=== PATIENT | female | born 1945 | race African-American/Black ===

== ENCOUNTER 2019-02-22 04:01 | Observation (INO) ==
[2019-02-22 04:27] LABS: Basophils % 0.1 % (0.0-0.8); Hematocrit 36.2 VOL% (35.7-47.0); Hemoglobin 11.2 GM/DL (12.0-16.0); Immature Granulocytes % 0.2 %; Immature Granulocytes Absolute 0.02 #; Lymphocytes % 21.2 % (21.3-54.2); Mean Corpuscular HGB Conc 30.9 GM/DL (32-36); Mean Corpuscular Volume 91.2 FL (87-102); Mean Platelet Volume 9.4 FL (9.6-12.0); Monocytes % 3.5 % (1.7-12.7); Platelet Count 257 T/CUMM (130-400); Red Blood Count 3.97 MC/CUMM (3.8-5.5); Red Cell Distribution Width 13.4 % (9.3-17.3); White Blood Count 9.2 T/CUMM (4-12)
[2019-02-22 04:33] LABS: INR 0.9; PT Patient Result 9.9 SECS (9.6-12.2)
[2019-02-22 04:38] LABS: Apearance,Urine CLEAR (Clear); Bilirubin,Urine Negative (Negative); Blood, Urine Negative (Negative); Glucose,Urine (UA) 150 mg/dL (Negative); Ketones,Urine Negative (Negative); Nitrite,Urine Negative (Negative); Protein,Urine Negative; RBC,Urine 1 /HPF (0-4); Urine Color Yellow (Yellow); Urine Specific Gravity 1.021 (1.001-1.035); Urine Urobilinogen < 2.0 EU/DL (0.2-1.0); WBC,Urine <1 /HPF (0-6)
[2019-02-22 04:45] LABS: Albumin 3.2 G/DL (3.4-5.0); Bilirubin,Total 0.4 MG/DL (0.2-1.0); Calcium 8.5 MG/DL (8.5-10.1); Osmolality,Calculated 290.3 MOS/KG (273-304); Total Protein 6.8 G/DL (6.4-8.3)
[2019-02-22] MEDS ORDERED: MAGNESIUM SULF RIDER 1 GM in PREMIX 1 EACH IV STA (05:05)
[2019-02-22] MEDS ORDERED: SODIUM CHLORIDE 0.9% 1,000 ML IV STA (05:10)
[2019-02-22] MEDS ORDERED: MAGNESIUM SULF RIDER 2 GM in PREMIX 1 EACH IV STA (05:12)
[2019-02-22 05:13] LABS: Barbiturates Screen,Urine Negative (Negative); Benzodiazepines Screen,Urine Negative (Negative); Cannabinoid Screen,Urine Negative (Negative); Opiate Screen,Urine Negative (Negative); Phencyclidine Screen,Urine Negative (Negative)
[2019-02-22] MEDS ORDERED: MAGNESIUM SULF RIDER 50 ML IV ONE (05:13)
[2019-02-22] MEDS ORDERED: MAGNESIUM SULF RIDER 2 GM in PREMIX 1 EACH IV PRN (06:35)
[2019-02-22] MEDS ORDERED: MAGNESIUM SULF RIDER 4 GM in PREMIX 1 EACH IV PRN (06:35)
[2019-02-22] MEDS ORDERED: DEXTROSE 50% 25 GM/50 ML VIAL IV PRN (06:35)
[2019-02-22] MEDS ORDERED: GLUCAGON 1 MG VIAL IM PRN (06:35)
[2019-02-22] MEDS ORDERED: DOCUSATE SODIUM 100 MG CAPSULE PO PRN (06:35)
[2019-02-22] MEDS ORDERED: ONDANSETRON 4 MG/2 ML VIAL IV PRN (06:35)
[2019-02-22] MEDS ORDERED: ACETAMINOPHEN 325 MG TABLET PO PRN (06:35)
[2019-02-22] MEDS: SODIUM CHLORIDE 0.9% 1,000 ML IV SCH ×2 (06:44→18:36)
[2019-02-22] MEDS: ENOXAPARIN 40 MG/0.4 ML SYRINGE SUBCUT SCH (06:44)
[2019-02-22 07:49] LABS: % Iron Saturation 14.7 % (18-50); Ferritin 81.8 ng/ml (8-252); Risk Ratio 2.21; Thyroid Stimulating Hormone 3.33 uIU/ml (0.358-3.74); VLDL CHOLESTEROL 17.4 MG/DL
[2019-02-22 08:18] LABS: Hematocrit 34.6 VOL% (35.7-47.0); Hemoglobin 10.9 GM/DL (12.0-16.0); Immature Granulocytes % 0.6 %; Immature Granulocytes Absolute 0.06 #; Lymphocytes # 0.9 10*3/uL (1.4-4.0); Mean Corpuscular HGB Conc 31.5 GM/DL (32-36); Mean Corpuscular Volume 90.3 FL (87-102); Mean Platelet Volume 9.4 FL (9.6-12.0); Monocytes % 3.2 % (1.7-12.7); Neutrophils % 87.2 % (38.7-73.9); Platelet Count 267 T/CUMM (130-400); Red Blood Count 3.83 MC/CUMM (3.8-5.5); Red Cell Distribution Width 13.5 % (9.3-17.3); White Blood Count 10.2 T/CUMM (4-12)
[2019-02-22 08:47] LABS: Folate 10.4 NG/ML (5.4-24.0); Vitamin B12 474 PG/ML (211-911)
[2019-02-22 09:22] LABS: Sedimentation Rate-Westergren 59 MM/HR (0-30)
[2019-02-22] MEDS: INSULIN REGULAR 100 UNIT/ML SUBCUT SCH ×4 (09:35→22:36)
[2019-02-22] MEDS ORDERED: POTASSIUM CHLORIDE RIDER 10 MEQ in PREMIX 1 EACH IV PRN (10:19)
[2019-02-22] MEDS ORDERED: diphenhydrAMINE CAP 25 MG CAPSULE PO PRN (11:00)
[2019-02-22] MEDS ORDERED: LISINOPRIL 5 MG TABLET PO ONE (11:06)
[2019-02-22 12:13] LABS: Calcium 8.4 MG/DL (8.5-10.1); Osmolality,Calculated 290.3 MOS/KG (273-304)
[2019-02-22] MEDS ORDERED: IBUPROFEN 800 MG TABLET PO PRN (21:52)
[2019-02-22] MEDS ORDERED: traZODone 50 MG TABLET PO SCH (23:00)
[2019-02-23] MEDS: SODIUM CHLORIDE 0.9% 1,000 ML IV SCH (01:35)
[2019-02-23 05:02] LABS: Eosinophils % 0.1 % (0.00-10.9); Hematocrit 29.7 VOL% (35.7-47.0); Hemoglobin 9.3 GM/DL (12.0-16.0); Immature Granulocytes % 0.3 %; Immature Granulocytes Absolute 0.02 #; Lymphocytes # 1.6 10*3/uL (1.4-4.0); Lymphocytes % 22.7 % (21.3-54.2); Mean Corpuscular HGB Conc 31.3 GM/DL (32-36); Mean Corpuscular Volume 91.1 FL (87-102); Mean Platelet Volume 9.8 FL (9.6-12.0); Monocytes % 4.1 % (1.7-12.7); Neutrophils % 72.8 % (38.7-73.9); Platelet Count 231 T/CUMM (130-400); Red Blood Count 3.26 MC/CUMM (3.8-5.5); Red Cell Distribution Width 13.3 % (9.3-17.3)
[2019-02-23 05:49] LABS: Osmolality,Calculated 288.8 MOS/KG (273-304)
[2019-02-23] MEDS: ENOXAPARIN 40 MG/0.4 ML SYRINGE SUBCUT SCH (07:25)
[2019-02-23] MEDS: INSULIN REGULAR 100 UNIT/ML SUBCUT SCH ×2 (08:47→11:53)
[2019-02-23] MEDS ORDERED: SERTRALINE 100 MG TABLET PO SCH (09:00)
[2019-02-23] MEDS ORDERED: CLOPIDOGREL 75 MG TABLET PO SCH (09:00)
[2019-02-23] MEDS ORDERED: LISINOPRIL 2.5 MG TABLET PO SCH (09:00)
[2019-02-23] MEDS ORDERED: sitaGLIPtin 100 MG TABLET PO SCH (09:00)
[2019-02-23 09:26] LABS: Hemoglobin A1 (Alkaline) 97.5 % (96.5-98.5); Hemoglobin A2 (Alkaline) 2.5 % (1.5-3.5)
[2019-02-23 10:52] VITALS: BP 127/81
== END 2019-02-23 14:48 | disposition home health service (06) ==
LOC: EDUNIT# → EDBD → N.EDINP 04:01 → N.ED 04:01 → N.4E 06:08
PROVIDERS: ADMIT Internal Medicine; ATTEND Internal Medicine

== ENCOUNTER 2022-05-24 19:26 | Inpatient (IN) ==
[2022-05-24 20:12] LABS: Basophils % 0.1 % (0.0-0.8); Hemoglobin 11.3 GM/DL (12.0-16.0); Immature Granulocytes % 0.7 %; Immature Granulocytes Absolute 0.08 #; Lymphocytes # 0.2 10*3/uL (1.4-4.0); Lymphocytes % 2.1 % (21.3-54.2); Mean Corpuscular HGB Conc 31.4 GM/DL (32-36); Mean Corpuscular Volume 86.7 FL (87-102); Mean Platelet Volume 10.3 FL (9.6-12.0); Monocytes # 0.5 10*3/uL (0.11-0.8); Monocytes % 4.5 % (1.7-12.7); Neutrophils % 92.6 % (38.7-73.9); Platelet Count 209 T/CUMM (130-400); Red Blood Count 4.15 MC/CUMM (3.8-5.5); Red Cell Distribution Width 14.4 % (9.3-17.3); White Blood Count 11.25 T/CUMM (4-12)
[2022-05-24 20:22] LABS: PT Patient Result 10.7 SECS (10.1-12.1); Partial Thromboplastin Time 29.6 SECS (23.7-32.9)
[2022-05-24 20:39] LABS: Albumin 3.8 G/DL (3.4-5.0); Bilirubin,Total 0.6 MG/DL (0.20-1.00); Calcium 9.5 MG/DL (8.5-10.1); Osmolality,Calculated 281.7 MOS/KG (273-304); Potassium 4.5 MMOL/L (3.5-5.1); Total Protein 7.4 G/DL (6.4-8.2)
[2022-05-24] MEDS ORDERED: MORPHINE 2 MG/1 ML SYRINGE IV STA (20:54)
[2022-05-24] MEDS ORDERED: NITROGLYCERIN SL 0.4 MG TABLET SL STA (20:54)
[2022-05-24] MEDS ORDERED: ASPIRIN 325 MG TABLET PO STA (20:54)
[2022-05-24] MEDS ORDERED: ONDANSETRON 4 MG/2 ML VIAL IV ONE (20:54)
[2022-05-24 21:00] LABS: Hypochromia Slight; Lymphocytes 1 % (20-55); Total Cells Counted 100
[2022-05-24 21:01] LABS: Ovalocytes Slight; Platelet Estimate Normal
[2022-05-24 21:39] LABS: Amorphous Crystals,Urine Occasional /HPF (Few); Mucus,Urine Occasional /LPF (Occasional); RBC,Urine 6 /HPF (0-4)
[2022-05-24 21:40] LABS: Glucose,Urine (UA) Negative (Negative); Ketones,Urine 80 mg/dL (Negative); Nitrite,Urine Negative (Negative); Protein,Urine >=300 mg/dL (Negative); Urine Appearance Slightly Cloudy (Clear); Urine Color Yellow (Yellow); Urine Specific Gravity >= 1.030 (1.001-1.035); Urine pH 5.5 (4.5-8.0)
[2022-05-24 21:41] LABS: Bilirubin,Urine Moderate mg/dL (Negative); Blood, Urine Large mg/dL (Negative); Urine Urobilinogen 0.2 eU/dL (<2.0)
[2022-05-24] MEDS ORDERED: ENOXAPARIN 30 MG/0.3 ML SYRINGE SUBCUT STA (21:45)
[2022-05-24] MEDS ORDERED: ENOXAPARIN 80 MG/0.8 ML SYRINGE SUBCUT STA (21:49)
[2022-05-24] MEDS ORDERED: hydrALAZINE 20 MG/1 ML VIAL IV PRN (23:30)
[2022-05-24] MEDS ORDERED: ONDANSETRON 4 MG/2 ML VIAL IV PRN (23:30)
[2022-05-24] MEDS ORDERED: SODIUM CHLORIDE 0.9% 1,000 ML IV STA (23:31)
[2022-05-24] MEDS ORDERED: MAGNESIUM SULF RIDER 2 GM/50 ML PREMIX IV ONE (23:34)
[2022-05-24] MEDS ORDERED: DEXTROSE 10% 250 ML BAG IV PRN (23:46)
[2022-05-25] MEDS ORDERED: REMDESIVIR 200 MG in SODIUM CHLORIDE 0.9% 210 ML IV ONE (01:00)
[2022-05-25] MEDS: DEXAMETHASONE 4 MG/1 ML VIAL IV SCH ×2 (02:11→11:30)
[2022-05-25] MEDS: SODIUM CHLORIDE 0.9% 1,000 ML IV SCH ×4 (02:42→22:29)
[2022-05-25 04:34] LABS: Basophils % 0.3 % (0.0-0.8); Hematocrit 32.3 VOL% (35.7-47.0); Hemoglobin 10.1 GM/DL (12.0-16.0); Immature Granulocytes % 0.6 %; Immature Granulocytes Absolute 0.05 #; Lymphocytes # 0.3 10*3/uL (1.4-4.0); Lymphocytes % 4.2 % (21.3-54.2); Mean Corpuscular HGB Conc 31.3 GM/DL (32-36); Mean Corpuscular Volume 89.5 FL (87-102); Monocytes # 0.3 10*3/uL (0.11-0.8); Monocytes % 4.3 % (1.7-12.7); Neutrophils % 90.6 % (38.7-73.9); Platelet Count 177 T/CUMM (130-400); Red Blood Count 3.61 MC/CUMM (3.8-5.5); Red Cell Distribution Width 14.5 % (9.3-17.3); White Blood Count 7.95 T/CUMM (4-12)
[2022-05-25 04:54] LABS: Band Neutrophils 1 % (0-10); Lymphocytes 3 % (20-55); Total Cells Counted 100
[2022-05-25 04:55] LABS: Hypersegmented Neutrophil SLIGHT; Hypochromia Slight; Microcytosis Slight
[2022-05-25 04:56] LABS: Alanine Aminotransferase 31 U/L (13-56); Albumin 3.1 G/DL (3.4-5.0); Alkaline Phosphatase 63 U/L (45-117); Aspartate Amino Transferase 106 U/L (0-37); Bilirubin,Total < 0.39 MG/DL (0.20-1.00); Blood Urea Nitrogen 23 MG/DL (7-18); Calcium 8.8 MG/DL (8.5-10.1); Carbon Dioxide 20 MMOL/L (21-32); Chloride 109 MMOL/L (98-107); Glucose 113 MG/DL (74-106); Osmolality,Calculated 283.4 MOS/KG (273-304); Ovalocytes Slight; Potassium 4.2 MMOL/L (3.5-5.1); Sodium 140 MMOL/L (136-145); Total Protein 6.6 G/DL (6.4-8.2)
[2022-05-25] MEDS ORDERED: AZITHROMYCIN INJ 500 MG in SODIUM CHLORIDE 0.9% 250 ML IV ONE (11:16)
[2022-05-25] MEDS: INSULIN LISPRO 100 UNIT/ML SUBCUT SCH ×4 (11:27→22:27)
[2022-05-25] MEDS: FAMOTIDINE 20 MG TABLET PO SCH ×2 (11:33→22:29)
[2022-05-25] MEDS: PANTOPRAZOLE 40 MG TABLET PO SCH (11:34)
[2022-05-25] MEDS: CETIRIZINE 10 MG TABLET PO SCH (11:34)
[2022-05-25] MEDS: ZINC GLUCONATE 50 MG TABLET PO SCH (11:34)
[2022-05-25] MEDS: ASCORBIC ACID 500 MG TABLET PO SCH ×2 (11:34→22:29)
[2022-05-25] MEDS: CHOLECALCIFEROL 1,000 UNIT TABLET PO SCH (11:34)
[2022-05-25] MEDS ORDERED: REMDESIVIR 100 MG in SODIUM CHLORIDE 0.9% 100 ML IV SCH (21:00)
[2022-05-25] MEDS: REMDESIVIR 100 MG in SODIUM CHLORIDE 0.9% 100 ML IV SCH (22:29)
[2022-05-25] MEDS: MELATONIN 3 MG TABLET PO PRN (22:29)
[2022-05-25] MEDS ORDERED: ACETAMINOPHEN 325 MG TABLET PO PRN (22:31)
[2022-05-26] MEDS: INSULIN LISPRO 100 UNIT/ML SUBCUT SCH ×4 (01:13→20:21)
[2022-05-26] MEDS: SODIUM CHLORIDE 0.9% 1,000 ML IV SCH ×2 (02:53→11:01)
[2022-05-26 04:48] LABS: Hematocrit 30.5 VOL% (35.7-47.0); Hemoglobin 9.5 GM/DL (12.0-16.0); Immature Granulocytes % 0.7 %; Immature Granulocytes Absolute 0.05 #; Lymphocytes # 0.7 10*3/uL (1.4-4.0); Lymphocytes % 9.2 % (21.3-54.2); Mean Corpuscular HGB Conc 31.1 GM/DL (32-36); Mean Corpuscular Volume 87.6 FL (87-102); Mean Platelet Volume 9.9 FL (9.6-12.0); Monocytes # 0.4 10*3/uL (0.11-0.8); Monocytes % 5.8 % (1.7-12.7); Neutrophils % 84.3 % (38.7-73.9); Platelet Count 181 T/CUMM (130-400); Red Blood Count 3.48 MC/CUMM (3.8-5.5); Red Cell Distribution Width 14.8 % (9.3-17.3); White Blood Count 7.21 T/CUMM (4-12)
[2022-05-26 05:07] LABS: Osmolality,Calculated 287.3 MOS/KG (273-304); Potassium 4.4 MMOL/L (3.5-5.1)
[2022-05-26 05:19] LABS: Ferritin 138.5 ng/mL (8-252)
[2022-05-26] MEDS: REMDESIVIR 100 MG in SODIUM CHLORIDE 0.9% 100 ML IV SCH (11:01)
[2022-05-26] MEDS: SERTRALINE 100 MG TABLET PO SCH (11:06)
[2022-05-26] MEDS: FAMOTIDINE 20 MG TABLET PO SCH ×2 (11:06→20:22)
[2022-05-26] MEDS: CETIRIZINE 10 MG TABLET PO SCH (11:06)
[2022-05-26] MEDS: CLOPIDOGREL 75 MG TABLET PO SCH (11:06)
[2022-05-26] MEDS: PANTOPRAZOLE 40 MG TABLET PO SCH (11:06)
[2022-05-26] MEDS: ASCORBIC ACID 500 MG TABLET PO SCH ×2 (11:07→20:22)
[2022-05-26] MEDS: CHOLECALCIFEROL 1,000 UNIT TABLET PO SCH (11:07)
[2022-05-26] MEDS: AZITHROMYCIN 250 MG TABLET PO SCH (11:07)
[2022-05-26] MEDS: ZINC GLUCONATE 50 MG TABLET PO SCH (11:07)
[2022-05-26] MEDS: DEXAMETHASONE 4 MG/1 ML VIAL IV SCH (12:41)
[2022-05-26] MEDS: MELATONIN 3 MG TABLET PO PRN (20:22)
[2022-05-27 04:31] LABS: Basophils % 0.1 % (0.0-0.8); Hematocrit 30.8 VOL% (35.7-47.0); Hemoglobin 9.7 GM/DL (12.0-16.0); Immature Granulocytes % 0.3 %; Immature Granulocytes Absolute 0.02 #; Lymphocytes # 1.1 10*3/uL (1.4-4.0); Lymphocytes % 14.5 % (21.3-54.2); Mean Corpuscular HGB Conc 31.5 GM/DL (32-36); Mean Corpuscular Volume 87.7 FL (87-102); Mean Platelet Volume 10.2 FL (9.6-12.0); Monocytes # 0.3 10*3/uL (0.11-0.8); Monocytes % 4.2 % (1.7-12.7); Neutrophils % 80.9 % (38.7-73.9); Platelet Count 187 T/CUMM (130-400); Red Blood Count 3.51 MC/CUMM (3.8-5.5); White Blood Count 7.57 T/CUMM (4-12)
[2022-05-27 04:58] LABS: Calcium 8.2 MG/DL (8.5-10.1); Osmolality,Calculated 283.3 MOS/KG (273-304); Potassium 4.1 MMOL/L (3.5-5.1)
[2022-05-27] MEDS: SODIUM CHLORIDE 0.9% 1,000 ML IV SCH (05:59)
[2022-05-27] MEDS ORDERED: MAGNESIUM SULF RIDER 2 GM/50 ML PREMIX IV ONE (08:18)
[2022-05-27] MEDS: CLOPIDOGREL 75 MG TABLET PO SCH (08:45)
[2022-05-27] MEDS: CHOLECALCIFEROL 1,000 UNIT TABLET PO SCH (08:45)
[2022-05-27] MEDS: FAMOTIDINE 20 MG TABLET PO SCH ×2 (08:45→20:30)
[2022-05-27] MEDS: ASCORBIC ACID 500 MG TABLET PO SCH ×2 (08:45→20:30)
[2022-05-27] MEDS: SERTRALINE 100 MG TABLET PO SCH (08:45)
[2022-05-27] MEDS: AZITHROMYCIN 250 MG TABLET PO SCH (08:45)
[2022-05-27] MEDS: PANTOPRAZOLE 40 MG TABLET PO SCH (08:45)
[2022-05-27] MEDS: CETIRIZINE 10 MG TABLET PO SCH (08:45)
[2022-05-27] MEDS: DEXAMETHASONE 4 MG/1 ML VIAL IV SCH (08:46)
[2022-05-27] MEDS: INSULIN LISPRO 100 UNIT/ML SUBCUT SCH ×4 (09:08→20:29)
[2022-05-27] MEDS: ZINC GLUCONATE 50 MG TABLET PO SCH (09:28)
[2022-05-27] MEDS: REMDESIVIR 100 MG in SODIUM CHLORIDE 0.9% 100 ML IV SCH (10:57)
[2022-05-27 17:20] LABS: % Iron Saturation 21.6 % (18-50)
[2022-05-27 17:27] LABS: 25 Hydroxy Vitamin D Total 9.4 NG/ML (30-100); Folate 5.8 NG/ML (5.38-24.0)
[2022-05-27] MEDS: MELATONIN 3 MG TABLET PO PRN (20:45)
[2022-05-28] MEDS: SODIUM CHLORIDE 0.9% 1,000 ML IV SCH ×2 (01:57→22:19)
[2022-05-28 05:10] LABS: Hematocrit 31.2 VOL% (35.7-47.0); Hemoglobin 9.9 GM/DL (12.0-16.0); Immature Granulocytes % 0.7 %; Immature Granulocytes Absolute 0.05 #; Lymphocytes # 1.9 10*3/uL (1.4-4.0); Lymphocytes % 24.6 % (21.3-54.2); Mean Corpuscular HGB Conc 31.7 GM/DL (32-36); Mean Corpuscular Volume 85.5 FL (87-102); Mean Platelet Volume 10.1 FL (9.6-12.0); Monocytes # 0.6 10*3/uL (0.11-0.8); Monocytes % 7.2 % (1.7-12.7); Neutrophils % 67.5 % (38.7-73.9); Platelet Count 217 T/CUMM (130-400); Red Blood Count 3.65 MC/CUMM (3.8-5.5); Red Cell Distribution Width 14.7 % (9.3-17.3); White Blood Count 7.65 T/CUMM (4-12)
[2022-05-28 05:11] LABS: Basophils % 0.1 % (0.0-0.8); Hematocrit 30.9 VOL% (35.7-47.0); Immature Granulocytes % 0.4 %; Immature Granulocytes Absolute 0.03 #; Lymphocytes # 1.8 10*3/uL (1.4-4.0); Mean Corpuscular HGB Conc 32.4 GM/DL (32-36); Mean Corpuscular Volume 86.1 FL (87-102); Mean Platelet Volume 9.8 FL (9.6-12.0); Monocytes # 0.5 10*3/uL (0.11-0.8); Monocytes % 6.6 % (1.7-12.7); Neutrophils % 68.9 % (38.7-73.9); Platelet Count 207 T/CUMM (130-400); Red Blood Count 3.59 MC/CUMM (3.8-5.5); Red Cell Distribution Width 14.8 % (9.3-17.3); White Blood Count 7.58 T/CUMM (4-12)
[2022-05-28 05:29] LABS: Calcium 8.3 MG/DL (8.5-10.1); Osmolality,Calculated 287.1 MOS/KG (273-304); Potassium 3.5 MMOL/L (3.5-5.1)
[2022-05-28 05:35] LABS: Folate 5.16 NG/ML (5.38-24.0); Vitamin B12 511 PG/ML (211-911)
[2022-05-28 06:18] LABS: Sedimentation Rate-Westergren 57 MM/HR (0-30)
[2022-05-28] MEDS ORDERED: lisinopriL 2.5 MG TABLET PO SCH (09:00)
[2022-05-28 09:28] LABS: Hemoglobin A1 (Alkaline) 97.8 % (96.5-98.5); Hemoglobin A2 (Alkaline) 2.2 % (1.5-3.5)
[2022-05-28] MEDS: CLOPIDOGREL 75 MG TABLET PO SCH (10:25)
[2022-05-28] MEDS: FERROUS SULFATE 325 MG TABLET PO SCH ×2 (10:25→22:18)
[2022-05-28] MEDS: FOLIC ACID 1 MG TABLET PO SCH (10:25)
[2022-05-28] MEDS: FAMOTIDINE 20 MG TABLET PO SCH ×2 (10:25→22:18)
[2022-05-28] MEDS: PANTOPRAZOLE 40 MG TABLET PO SCH (10:26)
[2022-05-28] MEDS: SERTRALINE 100 MG TABLET PO SCH (10:26)
[2022-05-28] MEDS: ASCORBIC ACID 500 MG TABLET PO SCH ×2 (10:26→22:18)
[2022-05-28] MEDS: ARIPiprazole 5 MG TABLET PO SCH (10:26)
[2022-05-28] MEDS: ZINC GLUCONATE 50 MG TABLET PO SCH (10:27)
[2022-05-28] MEDS: AZITHROMYCIN 250 MG TABLET PO SCH (10:27)
[2022-05-28] MEDS: CETIRIZINE 10 MG TABLET PO SCH (10:27)
[2022-05-28] MEDS: CHOLECALCIFEROL 1,000 UNIT TABLET PO SCH (10:27)
[2022-05-28] MEDS: DEXAMETHASONE 4 MG/1 ML VIAL IV SCH (10:28)
[2022-05-28] MEDS: REMDESIVIR 100 MG in SODIUM CHLORIDE 0.9% 100 ML IV SCH (10:28)
[2022-05-28] MEDS: INSULIN LISPRO 100 UNIT/ML SUBCUT SCH ×4 (10:30→22:19)
[2022-05-28] MEDS: MELATONIN 3 MG TABLET PO PRN (22:18)
[2022-05-29 04:35] LABS: Hematocrit 31.6 VOL% (35.7-47.0); Hemoglobin 10.1 GM/DL (12.0-16.0); Immature Granulocytes % 0.9 %; Immature Granulocytes Absolute 0.07 #; Lymphocytes # 1.8 10*3/uL (1.4-4.0); Lymphocytes % 23.5 % (21.3-54.2); Mean Corpuscular Volume 85.4 FL (87-102); Mean Platelet Volume 10.2 FL (9.6-12.0); Monocytes # 0.6 10*3/uL (0.11-0.8); Monocytes % 7.8 % (1.7-12.7); Neutrophils % 67.8 % (38.7-73.9); Platelet Count 231 T/CUMM (130-400); Red Cell Distribution Width 14.5 % (9.3-17.3); White Blood Count 7.83 T/CUMM (4-12)
[2022-05-29 05:08] LABS: Alanine Aminotransferase 28 U/L (13-56); Albumin 2.6 G/DL (3.4-5.0); Alkaline Phosphatase 58 U/L (45-117); Aspartate Amino Transferase 21 U/L (0-37); Bilirubin,Total < 0.39 MG/DL (0.20-1.00); Blood Urea Nitrogen 20 MG/DL (7-18); Calcium 8.4 MG/DL (8.5-10.1); Carbon Dioxide 24 MMOL/L (21-32); Chloride 110 MMOL/L (98-107); Glucose 139 MG/DL (74-106); Osmolality,Calculated 281.5 MOS/KG (273-304); Potassium 3.3 MMOL/L (3.5-5.1); Sodium 139 MMOL/L (136-145); Total Protein 6.4 G/DL (6.4-8.2)
[2022-05-29] MEDS ORDERED: POTASSIUM CHLORIDE 20 MEQ TABLET PO ONE (08:20)
[2022-05-29] MEDS ORDERED: lisinopriL 5 MG TABLET PO SCH (09:00)
[2022-05-29] MEDS: INSULIN LISPRO 100 UNIT/ML SUBCUT SCH ×4 (09:16→21:27)
[2022-05-29] MEDS: DEXAMETHASONE 4 MG/1 ML VIAL IV SCH (10:19)
[2022-05-29] MEDS: FAMOTIDINE 20 MG TABLET PO SCH ×2 (10:20→21:20)
[2022-05-29] MEDS: CLOPIDOGREL 75 MG TABLET PO SCH (10:20)
[2022-05-29] MEDS: PANTOPRAZOLE 40 MG TABLET PO SCH (10:20)
[2022-05-29] MEDS: CHOLECALCIFEROL 1,000 UNIT TABLET PO SCH (10:20)
[2022-05-29] MEDS: ZINC GLUCONATE 50 MG TABLET PO SCH (10:20)
[2022-05-29] MEDS: FOLIC ACID 1 MG TABLET PO SCH (10:20)
[2022-05-29] MEDS: ASCORBIC ACID 500 MG TABLET PO SCH ×2 (10:20→21:19)
[2022-05-29] MEDS: ARIPiprazole 5 MG TABLET PO SCH (10:21)
[2022-05-29] MEDS: CETIRIZINE 10 MG TABLET PO SCH (10:21)
[2022-05-29] MEDS: FERROUS SULFATE 325 MG TABLET PO SCH ×2 (10:21→21:20)
[2022-05-29] MEDS: SERTRALINE 100 MG TABLET PO SCH (10:21)
[2022-05-29] MEDS ORDERED: MAGNESIUM SULF RIDER 2 GM/50 ML PREMIX IV ONE (11:07)
[2022-05-29] MEDS: AZITHROMYCIN 250 MG TABLET PO SCH (13:31)
[2022-05-29] MEDS ORDERED: AZITHROMYCIN 250 MG TABLET PO SCH (14:00)
[2022-05-29] MEDS: MELATONIN 3 MG TABLET PO PRN (21:27)
[2022-05-30] MEDS ORDERED: lisinopriL 10 MG TABLET PO SCH (09:00)
[2022-05-30 09:24] LABS: Basophils % 0.1 % (0.0-0.8); Hematocrit 34.1 VOL% (35.7-47.0); Hemoglobin 10.7 GM/DL (12.0-16.0); Immature Granulocytes % 1.3 %; Immature Granulocytes Absolute 0.13 #; Lymphocytes # 2.6 10*3/uL (1.4-4.0); Lymphocytes % 26.2 % (21.3-54.2); Mean Corpuscular HGB Conc 31.4 GM/DL (32-36); Mean Corpuscular Volume 86.5 FL (87-102); Mean Platelet Volume 10.1 FL (9.6-12.0); Monocytes # 0.7 10*3/uL (0.11-0.8); Neutrophils % 65.4 % (38.7-73.9); Platelet Count 256 T/CUMM (130-400); Red Blood Count 3.94 MC/CUMM (3.8-5.5); Red Cell Distribution Width 14.6 % (9.3-17.3); White Blood Count 9.77 T/CUMM (4-12)
[2022-05-30 09:45] LABS: Alanine Aminotransferase 24 U/L (13-56); Albumin 2.7 G/DL (3.4-5.0); Alkaline Phosphatase 57 U/L (45-117); Aspartate Amino Transferase 13 U/L (0-37); Bilirubin,Total < 0.39 MG/DL (0.20-1.00); Blood Urea Nitrogen 22 MG/DL (7-18); Calcium 8.3 MG/DL (8.5-10.1); Carbon Dioxide 28 MMOL/L (21-32); Chloride 109 MMOL/L (98-107); Glucose 173 MG/DL (74-106); Potassium 3.9 MMOL/L (3.5-5.1); Sodium 143 MMOL/L (136-145); Total Protein 6.6 G/DL (6.4-8.2)
[2022-05-30] MEDS: PANTOPRAZOLE 40 MG TABLET PO SCH (10:00)
[2022-05-30] MEDS: CLOPIDOGREL 75 MG TABLET PO SCH (10:00)
[2022-05-30] MEDS: ASCORBIC ACID 500 MG TABLET PO SCH (10:00)
[2022-05-30] MEDS: FAMOTIDINE 20 MG TABLET PO SCH (10:00)
[2022-05-30] MEDS: FOLIC ACID 1 MG TABLET PO SCH (10:00)
[2022-05-30] MEDS: INSULIN LISPRO 100 UNIT/ML SUBCUT SCH ×2 (10:02→12:52)
[2022-05-30] MEDS: DEXAMETHASONE 4 MG/1 ML VIAL IV SCH (10:06)
[2022-05-30] MEDS: CHOLECALCIFEROL 1,000 UNIT TABLET PO SCH (10:07)
[2022-05-30] MEDS: FERROUS SULFATE 325 MG TABLET PO SCH (10:08)
[2022-05-30] MEDS: ZINC GLUCONATE 50 MG TABLET PO SCH (10:27)
[2022-05-30] MEDS: SERTRALINE 100 MG TABLET PO SCH (10:28)
[2022-05-30] MEDS: CETIRIZINE 10 MG TABLET PO SCH (10:28)
[2022-05-30] MEDS: ARIPiprazole 5 MG TABLET PO SCH (10:28)
[2022-05-30 12:16] VITALS: BP 135/69
== END 2022-05-30 12:45 | DRG 178 ==
LOC: N.ED 19:26 → N.EDINP 23:30 → N.TELEN 05-25 16:26
PROVIDERS: ADMIT Internal Medicine; ATTEND Internal Medicine